=== PATIENT | female | born 1995 | race Caucasian/White ===

== ENCOUNTER 2024-06-25 06:02 | Day surgery (SDC) | payer BC, SELFPAY ==
[2024-06-24 10:21] VITALS: BMI 36.8
[2024-06-25] VITALS (11 sets, daily range): BP systolic 122–156; BP diastolic 62–95; PULSE 68–106; RESP 17–24; TEMP 36.6–43; O2SAT 97–100
[2024-06-25 06:36] LABS: Urine Pregnancy, HCG Qual. Negative (Negative)
[2024-06-25] MEDS: LACTATED RINGERS 1000ML 1,000 ML 100 ML IV (06:44)
--- NOTE | 2024-06-25 07:10 | EXP.ANES.CKL ---
[facility] Disclaimer: The information contained in this section may have been updated after the patient was seen, as this information can be updated by other users. Medical History Anxiety Gallbladder & bile duct stone with obstruction Surgical History Hx of left knee surgery Hx of right knee surgery History of cholecystectomy History of Family History Other No significant family history Social History (Updated 06/25/24 @ 06:32 by Alley Grace RN) Smoking Status: Never smoker alcohol intake: never substance use type: denies use current occupational status: employed Travel in the last 8 weeks: None Have you lived/traveled outside [place] in past 30 days?: No Contact w/someone who lives/traveled outside [place] past 30 days?: No Exposure to someone with infectious disease in past 14 days?: No Do you have a fever (greater than 100.4 F or 38 C)?: No Have you tested positive for COVID-19: Yes Exposed to someone with COVID-19 in past 14 days?: No Do you have a sore throat?: No Do you have a cough?: No Do you have any weakness?: No Are you experiencing any nausea/vomitting?: No Do you have any diarrhea?: No Are you experiencing any unusual bleeding?: No Do you have any muscle aches/pain?: No Do you have any abdominal pain?: No Are you experiencing loss of taste or smell?: No [facility] Anesthesia Checklist Patient Identification Patient Identification: Arm Band and Family Structural Data Admitted From: Home Planned Operative Procedure/s: Right Knee ATS with chondroplasty. Consent for Planned Operative Procedure(s) Verified: Yes Verified Documents: Surgical Consent and History and Physical NPO Status Verified Time NPO: 00:00 Additional verifications Patient : No Anesthesia Reactions: Yes (NAUSEA) Hx Blood Transfusions: Yes Blood Transfusion Reaction: No Cephalosporin Allergy: No Previous Colonoscopy: No Airway Assessment Mallampati Score:: Class I C-Spine Mobility Assessed: Yes TMJ Mobility Assessed: Yes Dentition: Good Dentition Neurological Assessment Level of Consciousness: Awake, Alert, Appropriate and Follows Commands Hx Seizures: No Numbness or tingling in extremities: No Anesthesia Plan Anesthesia Risk discussed: Yes ASA Class: II Anesthesia Type: MAC Preoperative Comments Pre-Operative Comments: PONV. Acid reflux.
[2024-06-25] MEDS: CEFAZOLIN SODIUM 2 GM in 0.9 % SODIUM CHLORIDE 100 ML IV (07:26)
[2024-06-25] MEDS: BUPIVACAINE 0.25% 30ML VIAL 75 MG (07:56)
--- NOTE | 2024-06-25 08:39 | P.PNANES_ITS ---
[facility] Anesthesia Record Part I Anesthesia Record I Intake, IV Amount: 500 Hydration: Adequate Estimated blood loss (mL): 5 Urine output (mL): 0 Blood Products used (#): none Blood Pressure: 142/90 SaO2: 97 Pulse Rate: 101 Airway Patency: Patent Respiratory Rate: 24 Temperature: 98.4 F Patient is:: Drowsy and Stable Stable to PACU at:: 08:45
[2024-06-25] MEDS: MORPHINE 2MG/ML SYRINGE 2 MG (08:54)
--- NOTE | 2024-06-25 08:55 | EXP.OP.NOTE ---
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 Post-op Diagnosis:: Same Procedure performed:: Right knee arthroscopy with chondroplasty medial femoral condyle Surgeon:: Luis Felipe Dodge DO Disc Pad Knockout Worker(s):: Venkata CR CLINICAL PROVIDER TRAINER:: Stephane Danielle Anesthesia: GETA Estimated blood loss (mL): 0 Clinical Note:: 29-year-old female with longstanding history of problems with the medial femoral condyle now with osteochondral defect medial femoral condyle loose fraying cartilage Operative findings:: Defect medial femoral condyle 1.5 cm x 1 cm weightbearing surface loose jarred cartilage Operative note:: Patient was identified preoperatively. Right knee marked with yes and my initials. Transferred operative suite. Placed upon operating bed. General anesthesia was administered. Airway secured. Right lower extremity was then prepped and draped within the knee strickland. Once prepped and draped final operative timeout performed to identify proper patient procedure and extremity. Everyone involved in the case agreed. There is no counter indications to beginning. Did receive preoperative antibiotics. Marking pen was used to kay the bony landmarks in the and standard portal sites. Esmarch was used to exsanguinate the extremity and pneumatic tourniquet was inflated to 300 mmHg. Skin knife was used to incise standard anterior lateral portal and blunt with trocar was placed in the patellofemoral joint exchange with a camera. Diagnostic arthroscopy began. I swept directly into the medial joint line. Within the medial joint line there was some fraying of the soft tissue and scar tissue around the most medial aspect. Anterior medial portal was made under direct visualization with a gauge of an 18-gauge spinal needle. This was then exchanged with a probe. Probing the medial femoral condyle there is a large amount of loose fraying cartilage around the defect area. Using the nonabrasive shaver quite chondroplasty was performed around the defect there is full-thickness chondral defect present on the medial femoral condyle measurements of 1 cm x 1-1/2 cm. Chondroplasty around the loose jarred cartilage was performed. The medial meniscus was probed and intact without jarred tear. I swept into the intercondylar notch the ACL was seen and intact PCL was seen. There is a very small osteophyte on the most medial aspect of the lateral joint. Scope into the lateral joint line the lateral cartilage was intact lateral meniscus was intact. Swept back into the patellofemoral joint patella did track midline the trochlea there was some mild softening of the trochlea cartilage and some very mild fraying to the undersurface of the patella. Camera was driven through the knee the medial lateral gutters no further pathology was seen the camera was removed the joint was drained. Local anesthesia filtrated the portal sites. Skin was closed with nylon stitch. Sterile dressing placed from toe to thigh patient waken anesthesia taken recovery stable condition. Condition: stable Disposition: PACU Complications:: None apparent
--- NOTE | 2024-06-25 13:10 | EXP.ANES.II ---
[facility] Anesthesia Record Part II Anesthesia Record Part II Discharge Time: 09:05 Destination: Surgical Day Care (OP Surgery) PACU nurse assessment reviewed?: Yes Patient Condition:: Good Anesthesia Complications:: None Swallowing reflex intact?: Yes Airway Patency: Patent Cyanosis?: No Blood Pressure: 156/62 SaO2: 100 Respiratory Rate: 24 Pulse Rate: 92 Temperature: 98.4 F Mental Status: Alert & Oriented Pain level:: 2 Nausea and/or vomitting:: None Intake, IV Amount: 0 Hydration: Adequate
== END 2024-06-25 09:40 | disposition home or self-care (01) ==
PROVIDERS: PCP Physician Assistant Medical; Visit Provider Orthopaedic Surgery
PROC: (CPT 29870; principal; 2024-06-25 07:30)
DX: M93.261 Osteochondritis dissecans, right knee (principal)
CPT/HCPCS: 29877; 81025; 96374; J3490; J0690; J1100; J2250; J2270; J2405; J3010; J7120